=== PATIENT | female | born 1955 | race Hispanic/Latino ===

== ENCOUNTER 2017-04-12 09:51 | Outpatient (CLI) | payer OTHER ==
--- NOTE | 2017-04-12 16:31 | Mammography Report ---
BONE DEXA:04/12/17 09:51:00 CLINICAL: Postmenopausal and history of breast cancer status post bilateral mastectomy. COMPARISON: 03/29/15 and 03/21/13 TECHNIQUE: Two site bone DEXA performed on an [employer] scanner. FINDINGS: The average BMD of the lumbar spine L1-L4 is 0.866g/cm squared with a T-score of -1.6 and a Z-score of 0. This compares to 0.832g/cm squared on the last exam and represents a +4.1% change from the previous study and +7.0% change from baseline. The average BMD of the left hip is 0.851g/cm squared with a T-score of -0.7 and a Z-score of +0.4. This compares to 0.806g/cm squared on the last exam and represents a +5.6% change from the previous study and a +5.3% change from baseline. However, the femoral neck BMD is 0.678g/cm squared with a T score of -1.5 and a Z score of -0.1 IMPRESSION: 1. WHO classification: Osteopenia with increased fracture risk based on spine measurements. 2. WHO classification: Osteopenia with increased fracture risk based on left femoral neck measurements. RECOMMENDATION: Clinical correlation and routine screening. DEFINITIONS: BMD = Bone Mineral Density T-score = BMD related to mean peak bone mass of young adult (mean expressed in Standard Deviation) Z-score = Age matched BMD expressed in SD World Health Organization (WHO) Diagnostic Criteria Normal T-score > -1 SD Osteopenia T-score between -1 and -2.4 SD Osteoporosis T-score -2.5 SD or below NOTE: BMD is not the only risk factor for fracture; also consider factors such as the patient's age, risk of falling, previous osteoporotic fracture, family history of osteoporotic fractures, current smoker, and low body weight. Z-scores are not calculated if >80 years of age.
== END 2017-04-12 09:52 | disposition home or self-care (01) ==
LOC: SPVWC 09:51
PROVIDERS: ATTEND Internal Medicine Hematology & Oncology
DX: M85.89 Other specified disorders of bone density and structure, multiple sites (principal); Z78.0 Asymptomatic menopausal state; Z90.13 Acquired absence of bilateral breasts and nipples; Z85.3 Personal history of malignant neoplasm of breast
CPT/HCPCS: 77080

== ENCOUNTER 2019-07-01 08:21 | Outpatient (CLI) | payer MEDICARE, OTHER ==
--- NOTE | 2019-07-02 09:51 | Mammography Report ---
BONE DEXA CLINICAL: Postmenopausal. COMPARISON:04/12/2017, 03/29/2015 and 03/21/2013 TECHNIQUE: 2 site bone DEXA performed on an [employer] scanner. FINDINGS: The average BMD of the lumbar spine L1-L4 is 0.855g/cm squared with a T score of -1.7 and a Z score o f +0.1. This compares to 0.866g/cm squared on the last exam and represents a -1.3 % change from the l ast exam but a +5.7% change from baseline. The average BMD of the left hip is 0.840 g/cm squared with a T score of -0.8and a Z score of +0.4. Th is compares to 0.851 g/cm squared on the last exam and represents a -1.3 % change from the last exam but a +3.9% change from baseline. IMPRESSION: 1. WHO classification: Osteopenia with increased fracture risk based on spine measurements. 2. WHO classification Osteopenia with increased fracture risk based on left hip measurements. 3. A minimal decline in both spine and hip BMD compared to the last exam. RECOMMENDATION: Clinical correlation and routine screening. Definitions: BMD equal bone mineral density T score = BMD related to peak bone mass of young adult (Starr expressed an standard deviation) Z score = age-matched BMD expressed in SD World health organization (WHO) diagnostic criteria Normal T score greater than equal to 1 standard deviation Osteopenia T score between -1 and -2.4 standard deviation Osteoporosis T score -2.5 standard deviation or below. Note: BMD is not the only risk factor for fracture; also consider factors such as the patient's age, risk of falling, previous osteoporotic fracture, family history of osteoporotic fractures, current sm oker and low body weight. Z scores are not calculated if greater than 80 years of age. Signer Name: Chalino Costello MD Signed: 07/02/2019 9:47 AM Workstation Name: [id number]
== END 2019-07-01 08:22 | disposition home or self-care (01) ==
LOC: SPVWC 08:21
PROVIDERS: ATTEND Internal Medicine Hematology & Oncology
DX: M89.9 Disorder of bone, unspecified (principal); R59.0 Localized enlarged lymph nodes; R16.0 Hepatomegaly, not elsewhere classified; C50.412 Malignant neoplasm of upper-outer quadrant of left female breast; R94.5 Abnormal results of liver function studies; E66.9 Obesity, unspecified; M85.80 Other specified disorders of bone density and structure, unspecified site; E66.3 Overweight; E04.1 Nontoxic single thyroid nodule; E55.9 Vitamin D deficiency, unspecified; J38.00 Paralysis of vocal cords and larynx, unspecified; J38.01 Paralysis of vocal cords and larynx, unilateral; Z79.811 Long term (current) use of aromatase inhibitors; Z91.89 Other specified personal risk factors, not elsewhere classified; Z79.899 Other long term (current) drug therapy
CPT/HCPCS: 77080

== ENCOUNTER 2021-07-05 10:11 | Outpatient (CLI) | payer MEDICARE, OTHER ==
--- NOTE | 2021-07-05 13:39 | Mammography Report ---
DEXA BONE DENSITY SCAN INDICATION / CLINICAL INFORMATION: M85.89 OTHER DIS OF BONE DENSITY MULTIPLE SITES. 65 years Female COMPARISON: 07/01/2019 LUMBAR SPINE, L1-L4: - Bone mineral density (BMD) = 0.913 g/cm2. - T-score = -1.2 - Z-score = 0.7 Change (%) since most recent prior (if available): 6.7% increase LEFT HIP, NECK : - Bone mineral density (BMD) = 0.679 g/cm2. - T-score = -1.5 - Z-score = 0.1 Change (%) since most recent prior (if available): 2.9% increase IMPRESSION: 1. WHO Classification: Osteopenia. Fracture Risk: Increased. Note: 10-Year Fracture Risk (FRAX) not reported. This DEXA unit lacks FRAX functionality. BMD Reporting Guidelines (ISCD, 2015) BMD Reporting in Postmenopausal Women and in Men Age 50 and Older - T-scores are preferred. - The WHO densitometric classification is applicable. BMD Reporting in Females Prior to Menopause and in Males Younger Than Age 50 - Z-scores, not T-scores, are preferred. This is particularly important in children. - A Z-score of -2.0 or lower is defined as below the expected range for age, and a Z-score above -2.0 is within the expected range for age. - Osteoporosis cannot be diagnosed in men under age 50 on the basis of BMD alone. - The WHO diagnostic criteria may be applied to women in the menopausal transition. http://www.iscd.org/official-positions/3253-pphh-zoyknfcm-positions-adult/ Signer Name: Julian Cristobal MD Signed: 07/05/2021 1:35 PM Workstation Name: [id number]
== END 2021-07-05 10:12 | disposition home or self-care (01) ==
LOC: SPVWC 10:11
PROVIDERS: ATTEND Internal Medicine Hematology & Oncology
DX: M85.88 Other specified disorders of bone density and structure, other site (principal)
CPT/HCPCS: 77080